=== PATIENT | male | born 1995 | race Caucasian/White ===

== ENCOUNTER → 2024-08-22 | Outpatient (CLI) | payer OTHER ==
--- NOTE | 2024-08-22 12:54 | XR ---
EXAMINATION TYPE: XR hand complete RT DATE OF EXAM: 08/22/2024 12:39 PM CLINICAL INDICATION: Male, 28 years old with history of S60.221A CONTUSION OF RIGHT HAND, INITIAL S61 .401A; COMPARISON: None TECHNIQUE: XR hand complete RT Frontal, lateral and oblique views were obtained. FINDINGS/IMPRESSION: Irregular cortex of the fifth metacarpal distally near the the neck correlate with point tenderness f or fracture given history of laceration. [facility], , 08/22/2024 12:51 PM
== END | disposition home or self-care (01) ==
LOC: RADXRMAIN 12:22
PROVIDERS: ATTEND Emergency Medicine
DX: S60.221A Contusion of right hand, initial encounter (principal); S61.401A Unspecified open wound of right hand, initial encounter